=== PATIENT | female | born 1985 | race Caucasian/White ===

== ENCOUNTER 2017-09-10 14:13 | Inpatient (IN) | payer OTHER ==
[2017-09-10] MEDS ORDERED: PIPERACILLIN/TAZO 4.5 GM/DEX 100 ML IV ONE (15:30)
--- NOTE | 2017-09-10 15:41 | EDPHY ---
H & P Stated Complaint: infection s/p dog bite Time Seen by Provider: 09/10/17 14:20 HPI/ROS: CHIEF COMPLAINT: Infected dog bite right lower extremity HISTORY OF PRESENT ILLNESS: 31-year-old female presents with an infected dog bite. 1 week ago, she was bitten by her roommate's dog. She went to urgent care. The wound was cleansed and a prescription for Augmentin was written. She did not start the antibiotics. 2 days later, she developed erythema of the wound, associated with drainage from the wound. She went back to urgent care 2 days ago and the stitches were removed. She was placed on Augmentin and given a dose of IM Rocephin. Yesterday she went back to urgent care and was given and other IM injection of Rocephin. Today on a subsequent visit, the wound looked worse and she had increasing erythema of the right lower extremity. REVIEW OF SYSTEMS: complete 10 point ROS negative except at noted in the HPI - Personal History LMP (Females 10-55): 15-21 Days Ago Current Tetanus/Diphtheria Vaccine: Yes Current Tetanus Diphtheria and Acellular Pertussis (TDAP): Yes - Medical/Surgical History Hx Asthma: No Hx Chronic Respiratory Disease: No Hx Diabetes: No Hx Cardiac Disease: No Hx Renal Disease: No Hx Cirrhosis: No Hx Alcoholism: No Hx HIV/AIDS: No Hx Splenectomy or Spleen Trauma: No - Social History Smoking Status: Never smoked - Physical Exam Exam: General Appearance: Alert, pleasant Eyes: Pupils equal and round, no conjunctival pallor or injection ENT, Mouth: Mucous membranes moist Neck: Normal inspection Respiratory: Lungs are clear to auscultation Cardiovascular: Regular rate and rhythm Gastrointestinal: Abdomen is soft and nontender Neurological: A&O, nonfocal, normal gait Skin: Warm and dry, no rash Extremities: Right lower extremity -3 puncture wounds just below the right knee , serous drainage present, right knee effusion present, range of motion of knee without pain, there is erythema extending from the proximal thigh to the distal 1/3 of the lower leg Psychiatric: Mood and affect normal Constitutional: Initial Vital Signs Temperature (C) 36.6 C 09/10/17 14:27 Heart Rate 81 09/10/17 14:27 Respiratory Rate 16 09/10/17 14:27 Blood Pressure 122/86 H 09/10/17 14:27 O2 Sat (%) 98 09/10/17 14:27 O2 Delivery Mode Room Air Allergies/Adverse Reactions: No Known Allergies Allergy (Unverified 09/10/17 14:26) Home Medications: Medication Instructions Recorded Amoxicillin/Clavulanate Pot 875 mg PO BID 09/10/17 [Augmentin 875 MG TAB (*)] Ibuprofen [Motrin (*)] 800 mg PO TID PRN 09/10/17 Medical Decision Making - Diagnostics Imaging Results: Imaging Impressions Knee X-Ray 09/10/17 15:34 Impression: Soft tissue swelling, with a small suprapatellar joint effusion, and no acute osseous abnormality. ED Course/Re-evaluation: This patient presents with extensive cellulitis of the right lower extremity after a dog bite. Concern for joint infection, given joint effusion present on exam. Does not meet SIRS criteria and is not ill-appearing. Dr. Gavin was consulted and will see the patient. No evidence of foreign body on x-ray. MRI of the right knee ordered to rule out joint involvement. Wound culture and blood cultures sent. Zosyn 4.5 g IV given. The hospitalist service was consulted for admission. Differential Diagnosis: Includes does not limited to joint infection, necrotizing fasciitis, DVT, abscess - Data Points Laboratory Results: Laboratory Results 09/10/17 15:30 09/10/17 15:30 09/10/17 09/10/17 09/10/17 15:30 15:30 15:30 WBC 8.87 10^3/uL 10^3/uL (3.80-9.50) RBC 4.59 10^6/uL 10^6/uL (4.18-5.33) Hgb 14.2 g/dL g/dL (12.6-16.3) Hct 41.5 % % (38.0-47.0) MCV 90.4 fL fL (81.5-99.8) MCH 30.9 pg pg (27.9-34.1) MCHC 34.2 g/dL g/dL (32.4-36.7) RDW 12.5 % % (11.5-15.2) Plt Count 288 10^3/uL 10^3/uL (150-400) MPV 10.0 fL fL (8.7-11.7) Neut % (Auto) 74.9 % H % (39.3-74.2) Lymph % (Auto) 16.7 % % (15.0-45.0) [place] % (Auto) 5.9 % % (4.5-13.0) Eos % (Auto) 0.2 % L % (0.6-7.6) Baso % (Auto) 0.3 % % (0.3-1.7) Nucleat RBC Rel Count 0.0 % % (0.0-0.2) Absolute Neuts (auto) 6.64 10^3/uL H 10^3/uL (1.70-6.50) Absolute Lymphs (auto) 1.48 10^3/uL 10^3/uL (1.00-3.00) Absolute Monos (auto) 0.52 10^3/uL 10^3/uL (0.30-0.80) Absolute Eos (auto) 0.02 10^3/uL L 10^3/uL (0.03-0.40) Absolute Basos (auto) 0.03 10^3/uL 10^3/uL (0.02-0.10) Absolute Nucleated RBC 0.00 10^3/uL 10^3/uL (0-0.01) Immature Gran % 2.0 % H % (0.0-1.1) Immature Gran # 0.18 10^3/uL H 10^3/uL (0.00-0.10) VBG Lactic Acid 0.9 mmol/L mmol/L (0.7-2.1) Sodium 144 mEq/L mEq/L (135-145) Potassium 4.0 mEq/L mEq/L (3.5-5.2) Chloride 101 mEq/L mEq/L (97-110) Carbon Dioxide 24 mEq/l mEq/l (22-31) Anion Gap 19 mEq/L H mEq/L (8-16) BUN 6 mg/dL L mg/dL (7-23) Creatinine 0.6 mg/dL mg/dL (0.6-1.0) Estimated GFR > 60 Glucose 99 mg/dL mg/dL (70-100) Calcium 9.4 mg/dL mg/dL (8.5-10.4) Microbiology Results: MICROBIOLOGY 09/10/17 15:30 Knee - Swab Gram Stain - Final Medications Given: Dextrose/Sodium Chloride (D5w 1/2 Ns) 1,000 mls @ 75 mls/hr IV CONT ANDREW Stop: 03/09/18 16:14 Last Admin: 09/10/17 18:40 Dose: 1,000 mls Oxycodone/Acetaminophen (Percocet 5/325) 1 - 2 tab PO Q4HRS PRN PRN Reason: Pain, Severe Able to Take PO Stop: 09/20/17 16:14 Last Admin: 09/10/17 20:05 Dose: 1 tab Discontinued Medications Piperacillin/Tazobactam/Dextrose (Zosyn (Premix)) 100 mls @ 200 mls/hr IV EDNOW ONE PRN Reason: Protocol Stop: 09/10/17 15:59 Last Admin: 09/10/17 16:22 Dose: 100 mls Vancomycin/Sodium Chloride (Vancomycin 1 Gm (Premix)) 250 mls @ 250 mls/hr IV ONCE ONE PRN Reason: Protocol Stop: 09/10/17 20:23 Last Admin: 09/10/17 20:05 Dose: 250 mls Departure - Departure Disposition: [facility] Inpatient Acute Clinical Impression: Cellulitis Qualifiers: Site of cellulitis: extremity Site of cellulitis of extremity: lower extremity Laterality: right Qualified Code(s): L03.115 - Cellulitis of right lower limb Condition: Fair
[2017-09-10 15:44] LABS: PLATELET COUNT 288 10^3/uL (150-400)
[2017-09-10] MEDS ORDERED: D5W 1/2 NS 1,000 ML IV SCH (16:15)
[2017-09-10] MEDS ORDERED: ONDANSETRON DISINTEGRATING 4 MG TAB PO PRN (16:15)
[2017-09-10] MEDS ORDERED: ONDANSETRON 4 MG/2 ML VIAL IVP PRN (16:15)
[2017-09-10] MEDS ORDERED: TEMAZEPAM 15 MG CAP PO PRN (16:15)
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
[2017-09-10] MEDS ORDERED: GADOBUTROL 10 ML VIAL IVP ONE (17:07)
[2017-09-10] MEDS ORDERED: VANCOMYCIN HCL/NORMAL SALINE 250 ML IV ONE (19:24)
[2017-09-10] MEDS: OXYCODONE/APAP 5/325 TAB PO PRN (20:05)
--- NOTE | 2017-09-10 21:12 | GCON ---
[f rep st] CONSULTATION DATE OF CONSULTATION: 09/10/2017 CHIEF COMPLAINT: Right lower extremity pain, swelling and redness after a dog bite. HISTORY OF PRESENT ILLNESS: This 31-year-old female who was bitten by her roommate's dog when she tr ied to get in between a possible fight between her own dog and her roommate's dog. She was seen in [facility] that evening on September 04. The wound was irrigated and closed with sutures. She wa s given Augmentin. The patient did not take the Augmentin. She states that over the weekend, and Thursday, she was okay. However, on Thursday, she had significant erythema, redness, swelling, pa in, and drainage from her wound. She presented to urgent care again where she was placed on antibiot ics consisting of amoxicillin and given an injection of ceftriaxone. Wound care was performed. She was seen in sequential days at urgent care for suture removal, repeat irrigation, and subsequent IV c eftriaxone while on the amoxicillin, but has had continued swelling, pain, and redness throughout her right lower extremity and does admit to subjective fevers at night. She was advised to go to the em ergency department today, as her clinical picture has not improved. The patient is comfortable. She has been walking without assistive devices with mild pain. She denies numbness or tingling. She de nies any medical problems or history of infections. PAST MEDICAL HISTORY: None. PAST SURGICAL HISTORY: None. MEDICATIONS: Denies. ALLERGIES: None. SOCIAL HISTORY: 6-10 drinks per week, 4-5 uses of marijuana per week. 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 She denies tobacco use. Her mom is present from [place] today. REVIEW OF SYSTEMS: A 10-point review of systems is conducted and negative except per HPI. PHYSICAL EXAMINATION: VITAL SIGNS: Stable. Temperature 36.6, blood pressure 122/86, heart rate 81, respirations 16, and 98% on room air. GENERAL: The patient is comfortable, conversing normally. Alert and oriented x3 in no acute distres s. RESPIRATORY: Easy, nonlabored breathing. ABDOMEN: Soft, nontender, nondistended. RIGHT LOWER EXTREMITY: There is significant erythema, which has been previously marked out and extends from the posterior aspect of her thigh near the gluteal cleft down the posterior medial aspect of the thigh, w rapping around the anterior medial aspect of the leg and onto the anterolateral aspect of the leg giovanna n to the ankle. Erythema does kristine. There are no signs of fluctuance. Her compartments are soft. There is no sign of crepitus underneath the subcutaneous tissue or within it. There are 3 puncture wounds, 2 on the anterior medial aspect of the tibia, 1 approximately over the tibial tubercle. The y are draining serous fluid. There is a 1+ knee effusion. She has painless range of motion from 0-9 5 degrees actively and passively. DIAGNOSTIC STUDIES: White blood cell count is 8.8, lactate 0.9, anion gap is 19. IMAGING STUDIES: X-rays reviewed. No osseous abnormalities. Small suprapatellar effusion. MRI is read as small enhancing joint effusions suspicious for "infection", copious subcutaneous edema, and i nflammation. No evidence of osteomyelitis. ASSESSMENT AND PLAN: A 31-year-old female with extensive right lower extremity cellulitis resulting from a dog bite 6 days ago. She has had multiple different antibiotics at this point, including both intravenous and oral, both ceftriaxone and Zosyn in intravenous formats. The patient's clinical pic ture has a low suspicion for septic arthritis as pain with knee motion and weightbearing is mild at m ost. Due to the involved erythema, aspiration of the joint is difficult, if not risky to introduce i nfection into the joint. This patient has not had symptoms for 6 days. Due to the clinical picture and timeline I recommend observation over the next 12 hours to assess her response to intravenous Kylah syn. We discussed the risks of unnecessarily irrigating the patient's knee if there is no infection. Leaving open wounds could in fact introduce it. She will remain n.p.o. after midnight. Awaiting i nfectious disease consultation. The patient and mother understand and agree with the treatment plan. Questions are answered. /[id number]/MODL
[2017-09-10] MEDS: AMPICILLIN/SULBACTAM 3 GM in NS 100 ML IV SCH (21:51)
[2017-09-10] MEDS: KETOROLAC 15 MG/1 ML SDV IVP PRN (22:28)
[2017-09-11] MEDS: ZOLPIDEM TARTRATE 5 MG TAB PO PRN ×2 (00:20→22:19)
[2017-09-11] MEDS: AMPICILLIN/SULBACTAM 3 GM in NS 100 ML IV SCH ×4 (04:18→22:06)
[2017-09-11] MEDS: OXYCODONE/APAP 5/325 TAB PO PRN ×3 (04:21→22:19)
--- NOTE | 2017-09-11 06:13 | PDMN ---
Medical Necessity Medical necessity: Pt meets INPT criteria per and [facility] M-70 Cellulitis ( extensive R lower extremity cellulitis; failure of multiple outpatient IV and oral antibiotics; est. LOS >2 MN).
--- NOTE | 2017-09-11 08:09 | SOAPPROG ---
SOAP Progress Note Assessment/Plan: Assessment: 31-year-old female with extreme cellulitis of right lower extremity after a dog bite Plan: Significant improvement with current IV antibiotic regimen of Unasyn and vancomycin Final Wound and blood cultures still pending Very low suspicion for intra-articular involvement of the right knee and septic arthritis Continue to weightbear as tolerated; consider PT OT assistance Will continue to monitor and follow 09/11/17 08:09 09/11/17 08:10 Subjective: No acute events overnight. Pain well controlled. Significant substantial improvement in clinical signs and symptoms with IV Unasyn. Denies subjective fevers or chills. Denies chest pain shortness of breath numbness or tingling Objective: Vital Signs Temp Pulse Resp BP Pulse Ox 36.5 C 74 16 120/73 95 09/11/17 07:47 09/11/17 07:47 09/11/17 07:47 09/11/17 07:47 09/11/17 07:47 Laboratory Results 09/11/17 05:13 09/10/17 09/11/17 09/12/17 05:59 05:59 05:59 Intake Total 0 Balance 0 Awake alert and oriented x3 no acute distress Easy nonlabored breathing Right lower extremity: Significant improvement in erythema from buttock to ankle Decreased serous drainage from dog bite wounds Compartments soft compressible with the addition of decreased subcutaneous swelling Painless passive range of motion from 0-90 degrees 1+ knee effusion Sensation intact to light touch L3-S1 Motor intact to EHL FHL tibialis anterior gastrocsoleus Palpable DP PT pulses - Time Spent With Patient Time Spent With Patient: 10 ICD10 Worksheet Patient Problems: Problems Problem Status Onset Cellulitis Acute
[2017-09-11] MEDS: ACETAMINOPHEN 325 MG TAB PO PRN ×2 (09:59→17:04)
--- NOTE | 2017-09-11 11:06 | HOSPPROG ---
Hospitalist Progress Note Assessment/Plan: 31-year-old female with complaints of a dog bite. First encounter, chart reviewed. D/W Dr Begum #Cellulitis -cont IV abx #Wound -cont abx -supportive care -no surgery -appreciate Ortho -cx still pending #Pain -stable #Dispo -Will continue to monitor and follow -cont IV abx Subjective: Feeling much better. Less pain and swelling. Objective: Vital Signs Temp Pulse Resp BP Pulse Ox 36.5 C 74 16 120/73 95 09/11/17 07:47 09/11/17 07:47 09/11/17 07:47 09/11/17 07:47 09/11/17 07:47 Laboratory Results 09/11/17 05:13 09/10/17 09/11/17 09/12/17 05:59 05:59 05:59 Intake Total 0 Balance 0 - Physical Exam Constitutional: no apparent distress, appears nourished, not in pain Eyes: PERRL, anicteric sclera, EOMI Ears, Nose, Mouth, Throat: moist mucous membranes, hearing normal, ears appear normal Cardiovascular: No JVD, No tachycardia Respiratory: no respiratory distress, no rales or rhonchi, clear to auscultation Gastrointestinal: normoactive bowel sounds, No tenderness, No ascites Skin: warm, abrasion, erythema Musculoskeletal: normal joint ROM, no joint effusions, muscular tenderness, generalized weakness Neurologic: AAOx3 Psychiatric: interacting appropriately, not anxious, not encephalopathic, thought process linear ICD10 Worksheet Patient Problems: Problems Problem Status Onset Cellulitis Acute
--- NOTE | 2017-09-11 12:14 | ASMTCMCOM ---
CM Note CM Note Notes: CM reviewed chart, pt lives works and lives with roomate, anticipate she will dc home independent when medically stable. CM available for any changes. DC Plan: Independent Date Signed: 09/11/2017 12:14 PM Electronically Signed By:Sally Ferguson RN
--- NOTE | 2017-09-11 12:40 | GCON ---
[f rep st] CONSULTATION INFECTIOUS DISEASE CONSULTATION. DATE OF CONSULTATION: 09/11/2017 REQUESTING PHYSICIAN: Elías Welch MD REASON FOR CONSULTATION: Right lower extremity cellulitis following a dog bite. HISTORY OF PRESENT ILLNESS: A 31-year-old woman who is generally healthy, who sustained a dog bite from her roommate's dog on 09/04/2017. She went to Urgent Care where they stitched up her wound and provided her Augmentin. The patient did not take Augmentin as she just recently got over a GI illness. Starting on September 07, she has noticed increasing swelling and redness and presented to Urgent Care where they removed the stitches, gave her intramuscular ceftriaxone and amoxicillin. She was seen daily in Urgent Care and also on September 08 had a culture which subsequently grew 3+ pasteurella, beta lactamase negative. Despite ongoing therapy with urgent care, they recommended seeking the ER evaluation. After her urgent care visits, the patient was taking it easy , elevating her leg. She was having subjective fevers and chills daily. Upon evaluation in the emergency room 09/10/2017, the patient underwent an MRI which showed evidence of cellulitis, some fluid distending the infrapatellar bursa with enhancement and a moderate suprapatellar joint effusion. No evidence of osteo but some mild myositis of the tibialis anterior sheath. The patient was admitted to the hospital. Blood and wound cultures were obtained at that time as well, which are pending and she was given 1 dose of Zosyn and a dose of vancomycin and subsequently, in the evening. Changed to 3 g IV q.6 of Unasyn. The patient reports about 25% improvement in the erythema and the pain of her right lower extremity today. She denies any side effects related to the IV antibiotics. PAST MEDICAL HISTORY: negative. PAST SURGICAL HISTORY: Tonsillectomy. FAMILY HISTORY: Positive for diabetes and bone cancer. SOCIAL HISTORY: The patient drinks alcohol. No tobacco. Also uses marijuana. Works for a [employer]. ALLERGIES: NKDA. REVIEW OF SYSTEMS: A complete 10-point review of systems was performed and is negative except as mentioned in the HPI. PHYSICAL EXAM: VITAL SIGNS: BP 120/73, heart rate 74, respiratory rate 16, saturation 95% on room air, T 36.5, afebrile. GENERAL: This is a young, healthy -appearing woman, lying in bed. Minimal distress. HEENT: Good dentition. Moist mucous membranes. No oral ulcerations. NECK: Supple. CARDIOVASCULAR: Regular rate, no murmurs. CHEST: Clear to auscultation bilaterally. ABDOMEN: Soft, nontender. EXTREMITIES: Patient's right lower extremity demonstrated there are 3 puncture wounds, 2 on the medial aspect of the tibia and 1 over roughly the tibial tuberosity. There is purulence from the 1 over the tibial tuberosity and serous fluid from the other 2. The patient has limited flexion of the knee to approximately to about 80 degrees which is an improvement from admission. [place] erythema encompassing almost the entire lower leg and tracking medially on the thigh wrapping around the back. She also had significant edema of the leg, about 2+ compared to the left. She did have normal capillary refill and 2+ pulses. NEUROLOGIC: She was moving all extremities equally and was alert and oriented x4. LABS: White count normal 8.8 with 74% neutrophils, 16% lymphocytes. Creatinine is 0.7. Blood cultures collected yesterday are pending and wound culture had GPCs on the Gram stain and prior culture showed 3+ pasteurella multocida, beta lactamase negative. ASSESSMENT AND PLAN: 31-year-old woman who is healthy, who sustained a dog bite, who subsequently developed fairly severe cellulitis encompassing her right lower extremity with a prepatellar joint effusion and infrapatellar joint effusion and some limited range of motion of her knee. Past cultures show pasteurella, which is an expected pathogen and patient was getting IM ceftriaxone which would cover this organism. Nonetheless, suspect that drug levels from IM ceftriaxone were not reaching levels to adequately cover the severity of this infection, but also cannot completely exclude that the patient will eventually need washout of the prepatellar region. Intra-articular involvement seems less likely at this point based on exam and imaging. Patient already with significant improvement overnight on IV Unasyn. RECOMMENDATIONS: 1. Continue Unasyn 3gm IV q6h. 2. Follow cultures. 3. We will continue assessment for need for surgical intervention. At this point, reasonable to continue to monitor clinically. Discussed with Dr. Gavin Time 80 min >50% time spent with education and counseling. Discussed the pathogenesis of her infections and specifically organism involving the infection which is known pasteurella. Also, some concern for underlying strep infection due to the clinical appearance of her cellulitis. Unasyn will provide adequate coverage for both of these organisms. Thank you for this consultation. Care was coordinated with Tameka Bermudez NP. /[id number]/MODL MTDMariam
[2017-09-11] MEDS: KETOROLAC 15 MG/1 ML SDV IVP PRN (22:19)
[2017-09-12] MEDS: AMPICILLIN/SULBACTAM 3 GM in NS 100 ML IV SCH ×4 (04:20→21:41)
[2017-09-12] MEDS: ACETAMINOPHEN 325 MG TAB PO PRN (05:44)
[2017-09-12] MEDS: IBUPROFEN 200 MG TAB PO PRN ×3 (10:23→23:42)
--- NOTE | 2017-09-12 10:24 | SOAPPROG ---
SOAP Progress Note Assessment/Plan: Assessment: 31-year-old female with extreme cellulitis of right lower extremity after a dog bite Plan: Continued improvement with current IV antibiotic regimen of Unasyn Previous cultures with Pasturella. Wound culture in ED with strep Very low suspicion for intra-articular involvement of the right knee and septic arthritis Continue to weightbear as tolerated Will continue to monitor and follow Disposition: Pending medical infectious disease clearance. Recommend follow up with me early next week (Mon/Tues) to continue to monitor 09/11/17 08:09 09/11/17 08:10 09/12/17 10:21 Subjective: No acute events overnight. Pain well controlled. Denies fevers chills nausea vomiting chest pain shortness of breath numbness tingling Objective: Vital Signs Temp Pulse Resp BP Pulse Ox 36.4 C 65 14 124/80 H 97 09/12/17 08:00 09/12/17 08:00 09/12/17 08:00 09/12/17 08:00 09/12/17 08:00 Laboratory Results 09/11/17 05:13 09/11/17 09/12/17 09/13/17 05:59 05:59 05:59 Intake Total 0 500 Balance 0 500 Awake alert x3 No acute distress Easy nonlabored breathing Right lower extremity: Continued improvement in swelling and erythema Compartments soft compressible Range of motion 0-120 degrees with discomfort at the extremes of flexion Continued 1+ effusion and prepatellar swelling Three bite ron with continued improvement in drainage, continued mild drainage from most anterior bite, anteromedial ron with no expressible drainage. No calf pain Otherwise neurovascularly intact - Time Spent With Patient Time Spent With Patient: 10 ICD10 Worksheet Patient Problems: Problems Problem Status Onset Cellulitis Acute
--- NOTE | 2017-09-12 13:32 | PCMIDPN ---
Assessment/Plan: Assessment/Plan: * Right lower extremity skin and soft tissue infection with probable septic prepatellar bursitis status post dog bite: Cultures with growth of Streptococcus anginosus and 2nd gram-negative lemuel with initial culture showing growth of pasteurella. Significant clinical improvement with resection of cellulitis. Remains with bursal thickening and some purulent drainage from puncture site in this region. Continue Unasyn with ongoing clinical observation. Continue to follow bursal findings to ensure does not ultimately need incision and drainage. Time spent, greater than 25 min, of which greater than half was spent in education/counseling/coordination of care related to right lower extremity skin and soft tissue infection after dog bite. 09/12/17 13:28 09/12/17 13:31 Subjective: Patient feels much better with less leg erythema and knee pain. Objective: Vital Signs Temp Pulse Resp BP Pulse Ox 36.5 C 59 L 14 116/73 96 09/12/17 11:26 09/12/17 11:26 09/12/17 11:26 09/12/17 11:26 09/12/17 11:26 Laboratory Results 09/11/17 05:13 09/11/17 09/12/17 09/13/17 05:59 05:59 05:59 Intake Total 0 500 Balance 0 500 Unasyn # 2 Blood cultures x2 no growth Wound culture with growth of Streptococcus anginosus and gram-negative lemuel MRI findings noted - Physical Exam General Appearance: alert, no apparent distress EENT: No scleral icterus Extremities: inflammation (Right lower extremity with marked decrease in erythema over thigh, knee and lower extremity; edema remains below knee; thickening over bursa with tenderness and some purulent thick discharge; no irritability with range of motion of knee) ICD10 Worksheet Patient Problems: Problems Problem Status Onset Cellulitis Acute
--- NOTE | 2017-09-12 15:03 | HOSPPROG ---
Hospitalist Progress Note Assessment/Plan: # RLE cellulitis/bursitis after dog bite; wound cultures growing strep anginosus and neisseria weaveri - cont unasyn - cont ibup for pain - follow to assure does not need I&D Subjective: still painful but better Objective: Vital Signs Temp Pulse Resp BP Pulse Ox 36.5 C 59 L 14 116/73 96 09/12/17 11:26 09/12/17 11:26 09/12/17 11:26 09/12/17 11:26 09/12/17 11:26 Laboratory Results 09/11/17 05:13 09/11/17 09/12/17 09/13/17 05:59 05:59 05:59 Intake Total 0 500 Balance [address] Gavin - Physical Exam Constitutional: no apparent distress, appears nourished Cardiovascular: regular rate and rhythym, no murmur, rub, or gallop Respiratory: no respiratory distress, no rales or rhonchi, clear to auscultation Gastrointestinal: soft, non-tender abdomen, no palpable masses, No guarding, No rebound, No distension Musculoskeletal: other (ongoin R knee edema; significant improvement in R leg erythema; knee flexion to about 120 degrees) ICD10 Worksheet Patient Problems: Problems Problem Status Onset Cellulitis Acute
[2017-09-12] MEDS: OXYCODONE/APAP 5/325 TAB PO PRN (21:41)
[2017-09-12] MEDS: ZOLPIDEM TARTRATE 5 MG TAB PO PRN (21:42)
[2017-09-13] MEDS: AMPICILLIN/SULBACTAM 3 GM in NS 100 ML IV SCH ×2 (04:12→09:44)
[2017-09-13 08:11] VITALS: BP 108/67
[2017-09-13] MEDS: IBUPROFEN 200 MG TAB PO PRN ×2 (09:41→15:40)
--- NOTE | 2017-09-13 11:06 | SOAPPROG ---
SOAP Progress Note Assessment/Plan: Assessment: 31-year-old female with extreme cellulitis of right lower extremity after a dog bite Plan: Continued improvement with current IV antibiotic regimen of Unasyn Previous cultures with Pasturella. Wound culture in ED with strep and neisseria Very low suspicion for intra-articular involvement of the right knee and septic arthritis Prepatellar bursal involvement: Drainage decreasing daily Continue to weightbear as tolerated Will continue to monitor and follow Disposition: Pending medical /infectious disease clearance. Recommend follow up with me early next week (, Thursday if regression in improvement) to continue to monitor. 09/11/17 08:09 09/11/17 08:10 09/12/17 10:21 09/13/17 11:03 09/13/17 11:08 Subjective: NO acute events overnight. Pain controlled. Ambulating without assistance. Denies f/c/cp/sob/n/v/numbness/tingling. Objective: Vital Signs Temp Pulse Resp BP Pulse Ox 36.4 C 82 16 108/67 96 09/13/17 08:00 09/13/17 08:00 09/13/17 08:00 09/13/17 08:00 09/13/17 08:00 Laboratory Results 09/11/17 05:13 09/12/17 09/13/17 09/14/17 05:59 05:59 05:59 Intake Total 500 350 Balance 500 350 Awake alert x3 No acute distress Easy nonlabored breathing Right lower extremity: Continued improvement in swelling. No residual erythema. Compartments soft compressible Range of motion 0-130 degrees with no discomfort Continued 1+ effusion and prepatellar swelling over patellar tendon Three bite ron with continued improvement in drainage, continued mild drainage from most anterior bite, anteromedial ron with no expressible drainage. No calf pain Otherwise neurovascularly intact - Time Spent With Patient Time Spent With Patient: 15 ICD10 Worksheet Patient Problems: Problems Problem Status Onset Cellulitis Acute
--- NOTE | 2017-09-13 14:20 | PCMIDPN ---
Assessment/Plan: Assessment/Plan: * Right lower extremity skin and soft tissue infection with probable septic prepatellar bursitis status post dog bite: Cultures with growth of Streptococcus anginosus and Neisseria weaveri with initial culture showing growth of pasteurella. Significant clinical improvement with significant recession of cellulitis. Bursal thickening and tenderness persist although drainage significantly reduced. Knee without signs of septic arthritis. Given clinical improvement, will transition Unasyn to Augmentin to complete another 10 days of therapy given probable bursal involvement which is usually slower to resolve. Will arrange for follow-up in our office later this week for repeat assessment. Side effects of Augmentin were reviewed with patient today. 09/13/17 14:17 09/13/17 14:19 Subjective: Patient with less knee pain. Still has pain in bursal region with some drainage. Up walking without difficulty. Objective: Vital Signs Temp Pulse Resp BP Pulse Ox 36.7 C 63 14 108/67 96 09/13/17 11:22 09/13/17 11:22 09/13/17 11:22 09/13/17 11:22 09/13/17 11:22 Laboratory Results 09/11/17 05:13 09/12/17 09/13/17 09/14/17 05:59 05:59 05:59 Intake Total 500 350 Balance 500 350 Unasyn # 3 Blood cultures x2 no growth Wound culture with growth of Streptococcus anginosus and Neisseria weaveri - Physical Exam General Appearance: alert, no apparent distress EENT: No scleral icterus Extremities: inflammation (Right lower extremity with resolution of erythema over thigh with minimal residual over anterior hernandez; bursal thickening in tenderness present although less prominent than yesterday with decrease in purulent output; no pain with range of motion of knee joint) Skin: No rash Lymphatic: other (No lymphangitis right thigh) ICD10 Worksheet Patient Problems: Problems Problem Status Onset Cellulitis Acute
[2017-09-13] MEDS ORDERED: ERTAPENEM 1 GM VIAL IV ONE (14:23)
--- NOTE | 2017-09-13 15:14 | GDS ---
[f rep st] DISCHARGE SUMMARY ALL DIAGNOSES: Right lower extremity cellulitis and bursitis after a dog bite. HOSPITAL COURSE: A 31-year-old female who presented a week after a dog bite. She had been in and ou t of urgent care prior to this. Had a prescription for Augmentin, however, her infection had worsened. She presented with a very signifi cant cellulitis over her right leg. MRI, which was obtained, showed likely bursitis, as well as supr apatellar joint effusion. She has been followed by Orthopedics, as well as Infectious Disease. At t his point, we will continue with antibiotic therapy. She has had a very good response to intravenous Unasyn. She will receive 1 dose of Invanz prior to discharge and then be transitioned to Augmentin for an additional 10 days of treatment. She will follow up with both Dr. Gavin, as well as Dr. Way, in their office next week. She has been given contact information to assure that these appointments get made. BILLING: I spent more than 30 minutes on the day of discharge coordinating care. /[id number]/MODL
--- NOTE | 2017-09-13 16:13 | ASMTLACE ---
[facility] Length of stay for Answers: 3 days current admission Acuity / Level of Answers: Yes Care: Did the patient have an inpatient admission? # of Emergency department Answers: 1-2 visits in the last 6 months Score: 7 Date Signed: 09/13/2017 04:13 PM Electronically Signed By:WALTER Mendoza
--- NOTE | 2017-09-16 13:41 | ASDISCHSUM ---
Discharge Information Plan Status:Home with No Needs Medically Cleared to Leave:09/13/2017 Discharge Date:09/13/2017 CM D/C Disposition:Home, Routine, Self-Care ADT D/C Disposition:Home, Routine, Self-Care Projected Discharge Date:09/13/2017 Transportation at D/C:Friend Discharge Delay Reason: Follow-Up Date:09/13/2017 Discharge Slot: Final Diagnosis: Placement Information Patient Contact Information Contact Name:BARRINGTON Relationship:Mother Address: Work Phone: City: [facility] Phone: State/[place] Code: Email: Financial Information Financial Class:HMO and PPO Plans Primary Plan Desc:[employer] Primary Plan Number:[id number] Secondary Plan Desc: Secondary Plan Number: Assessment Information LACE LACE Length of stay for Answers: 3 days current admission Acuity / Level of Answers: Yes Care: Did the patient have an inpatient admission? # of Emergency department Answers: 1-2 visits in the last 6 months Score: 7 Date Signed: 09/13/2017 04:13 PM Electronically Signed By:WALTER Mendoza [facility] Progress Note CM Note CM Note Notes: CM reviewed chart, pt lives works and lives with roomate, anticipate she will dc home independent when medically stable. CM available for any changes. DC Plan: Independent Date Signed: 09/11/2017 12:14 PM Electronically Signed By:Sally Ferguson RN Case Management Discharge Plan Note Case Management Discharge Discharge Order Complete? Answers: Yes Patient to Obtain Answers: Independently Medications Transportation Arranged Answers: Family/Friends Discharge Comments Notes: Pt is discharging home today with no CM needs. She will transition from IV Unasyn to po Augmentin. Date Signed: 09/13/2017 04:12 PM Electronically Signed By:WALTER Mendoza Intervention Information
== END 2017-09-13 16:53 | disposition home or self-care (01) | DRG 603 ==
LOC: F3E 18:30
PROVIDERS: ADMIT Student in an Organized Health Care Education/Training Program; ATTEND Student in an Organized Health Care Education/Training Program
DX: L03.115 Cellulitis of right lower limb (principal); M71.561 Other bursitis, not elsewhere classified, right knee; S81.051A Open bite, right knee, initial encounter; M25.461 Effusion, right knee; B95.4 Other streptococcus as the cause of diseases classified elsewhere
CPT/HCPCS: A9585; J0295; J1335; J1885; J2543; J3370